=== PATIENT | female | born 1970 | race Caucasian/White ===

== ENCOUNTER → 2016-07-10 | Outpatient (CLI) | payer BC ==
--- NOTE | 2016-07-10 16:23 | RAD ---
Thyroid ultrasound, 07/10/2016: History: Thyroid nodules The right lobe of the gland measures 6.1 x 1.4 x 1.3 cm while the left lobe of the gland measures 4.1 x 1.4 x 1.4 cm. The thyroid gland is heterogeneous containing multiple nodules. The largest nodule lies in the lower pole of the right lobe of the gland and measures 1.8 x 1.2 x 0.8 cm. The nodule is wider than it is tall. It is smoothly marginated. It contains cystic and solid appearing components. There are multiple other subcentimeter nodules in both lobes of the gland. These include a well-defined 6 mm nodule in the lower pole of the left lobe of the gland which demonstrates low level internal echoes and posterior acoustic enhancement. This is probably a colloid cyst. Several other cystic appearing and mildly hypoechoic nodules are seen in both lobes. No calcifications are identified. IMPRESSION: Multinodular thyroid gland as described above. The sonographic characteristics of these nodules are nonspecific. No highly suspicious features are evident. Sonographic surveillance is suggested.
== END | disposition home or self-care (01) ==
LOC: US 10:40
PROVIDERS: ATTEND Family Medicine
DX: E04.2 Nontoxic multinodular goiter (principal)
CPT/HCPCS: 76536

== ENCOUNTER → 2016-10-21 | Outpatient (CLI) | payer BC ==
--- NOTE | 2016-10-21 13:41 | CARD ---
APPROVED REPORT EXAM: Two-dimensional and M-mode echocardiogram with Doppler and color Doppler. Other Information Quality : Average Rhythm : NSR with PVC's INDICATION Palpitations Autoimmune disease 2D DIMENSIONS Left Atrium(2D)3.7 (1.6-4.0cm)IVSd0.7 (0.7-1.1cm) Aortic Root(2D)2.6 (2.0-3.7cm)LVDd4.5 (3.9-5.9cm) LVOT Diameter2.0 (1.8-2.4cm)PWd0.7 (0.7-1.1cm) LVDs3.3 (2.5-4.0cm)FS (%) 28.5 % SV47.6 mlLVEF(%)55.0 (>50%) Aortic Valve AoV Peak Rony.108.5cm/sAoV VTI24.7cm AO Peak GR.4.7mmHgLVOT Peak Rony.93.7cm/s LVOT VTI 21.80cmAO Mean GR.3mmHg SHASHA (VMAX)2.56ky5UNN (VTI)2.91cm2 Mitral Valve MV E Nbbpngwr61.8cm/sMV E Peak Gr.3mmHg MV DECEL [id number] A Afzjfryi79.7cm/s MV E Mean Gr.1mmHgMV [id number] E/A Ratio1.3MV A [id number] MVA (PHT)3.79cm2 Tricuspid Valve TR P. Cluuawxn018wh/sRAP FNUKQESX1ncZk TR Peak Gr.71idPwKNYX35kvPa LEFT VENTRICLE The left ventricle is normal size. There is normal left ventricular wall thickness. Left ventricle sy stolic function is normal. The Ejection Fraction is 55-60%. There is normal LV segmental wall motion. The left ventricular diastolic function and filling is normal for age. There is no ventricular septa l defect visualized. RIGHT VENTRICLE The right ventricle is normal size. The right ventricular systolic function is normal. ATRIA The left atrium size is normal. The right atrium size is normal. The interatrial septum is intact wit h no evidence for an atrial septal defect or patent foramen ovale as noted on 2-D or Doppler imaging. AORTIC VALVE The aortic valve is normal in structure and function. The aortic valve is trileaflet. Doppler and Col or Flow revealed no significant aortic regurgitation. There is no significant aortic valvular stenosi s. MITRAL VALVE The mitral valve is normal in structure and function. There is no mitral valve stenosis. Doppler and Color Flow revealed trace mitral regurgitation. TRICUSPID VALVE The tricuspid valve is normal in structure and function. Doppler and Color Flow revealed trace tricus pid regurgitation. The PA pressure was estimated at 30 mmHg. There is no tricuspid valve stenosis. PULMONIC VALVE The pulmonic valve is not well visualized. Doppler and Color Flow revealed no pulmonic valvular regur gitation. There is no pulmonic valvular stenosis. GREAT VESSELS The aortic root is normal in size. Pulmonary veins not recorded. The IVC is normal in size and collap ses >50% with inspiration. PERICARDIAL EFFUSION There is no evidence of significant pericardial effusion. Critical Notification Critical Value: No <Conclusion> Left ventricle systolic function is normal. The Ejection Fraction is 55-60%. There is normal LV segmental wall motion. No significant valvular disease noted.
== END | disposition home or self-care (01) ==
LOC: ECHO 12:33
PROVIDERS: ATTEND Family Medicine
DX: D89.89 Other specified disorders involving the immune mechanism, not elsewhere classified (principal)
CPT/HCPCS: 93306

== ENCOUNTER → 2017-06-25 | Outpatient (CLI) | payer BC ==
--- NOTE | 2017-06-25 16:50 | RAD ---
Thyroid ultrasound, 06/25/2017: History: Multinodular goiter The right lobe of the gland measures 6.3 x 1.5 x 1.5 cm while the left lobe of the gland measures 4.3 x 1.3 x 1.3 cm. There is a dominant 1.9 x 1.8 x 1.2 cm nodule in the lower pole of the right lobe of the gland. It has a solid appearance with internal calcification. Its echo pattern is heterogeneous. Its margins are fairly smooth. On the previous study of 07/10/2016 it measured 1.8 x 1.2 x 0.9 cm. The nodule therefore appears to have increased in size. The recent CT neck exam of 04/27/2017 shows extension of this nodule into the isthmus. There are multiple other bilateral subcentimeter mildly hypoechoic nodules. These nodules are smooth and do not demonstrate calcification. A similar appearance was present on the previous study. IMPRESSION: Enlarging right lower lobe thyroid nodule containing calcifications. Ultrasound-guided biopsy is suggested for further evaluation.
== END | disposition home or self-care (01) ==
LOC: US 10:33
PROVIDERS: ATTEND Otolaryngology
DX: E04.2 Nontoxic multinodular goiter (principal)
CPT/HCPCS: 76536